=== PATIENT | male | born 1960 | race Caucasian/White ===

== ENCOUNTER 2018-08-01 14:44 | Inpatient (IN) | payer OTHER ==
[~2018-08-01] VITALS: Ht 172.7 cm; Wt 113.4 kg
--- NOTE | 2018-08-01 15:00 | NUR ---
BBPA FROM CLINIC: PALPITATIONS, NEW ONSET OF A-FIB. PT AAOX3, DENIES CP, SOB, DIZZINESS, N/V, ARM/JAW PAIN @ THIS TIME. PT SEEN & EVAL'D BY DR. HORNE & WILL CONT TO MONITOR.
[2018-08-01] MEDS ORDERED: FLUT16SP16 NS (15:07)
[2018-08-01] MEDS ORDERED: KETO10DR3 EACHEYE (15:07)
[2018-08-01] MEDS ORDERED: NAPR-1009 PO (15:07)
[2018-08-01 15:40] LABS: BASOPHILS # (AUTO) 0.2 /CMM (0.0-0.2); BASOPHILS % (AUTO) 2.3 % (0.0-2.0); EOSINOPHILS % (AUTO) 0.9 % (0.0-6.0); HEMATOCRIT 46 % (39-51); HEMOGLOBIN 15.1 g/dL (13.5-17.5); LYMPHOCYTES # (AUTO) 2.4 /CMM (0.8-4.8); LYMPHOCYTES % (AUTO) 28.2 % (20.0-44.0); MEAN CORPUSCULAR HEMOGLOBIN 28 PG (26.0-33.0); MEAN CORPUSCULAR HGB CONC 33 g/dl (31.0-36.0); MEAN CORPUSCULAR VOLUME 85 fL (80-96); MONOCYTES # (AUTO) 0.5 /CMM (0.1-1.30); MONOCYTES % (AUTO) 5.7 % (2.0-12.0); NEUTROPHILS # (AUTO) 5.3 /CMM (1.8-8.9); NEUTROPHILS % (AUTO) 62.9 % (43.0-81.0); PLATELET COUNT (AUTO) 222 /CMM (150-450); RDW COEFFICIENT OF VARIATION 13.2 (11.5-15.0); RED BLOOD CELL COUNT(AUTO) 5.42 MIL/uL (4.5-6.0); WHITE BLOOD COUNT (AUTO) 8.5 K/uL (4.3-11.0)
[2018-08-01 15:53] LABS: CALCIUM, SERUM 9.1 mg/dL (8.5-10.1); CARBON DIOXIDE 25 mmol/L (21-32); CHLORIDE 106 mmol/L (98-107); GLUCOSE 89 mg/dL (74-106); POTASSIUM 3.8 mmol/L (3.5-5.1); SODIUM SERUM 141 mmol/L (136-145); UREA NITROGEN, BLOOD 12 mg/dL (7-18)
[2018-08-01 15:55] LABS: INR 0.97 (0.85-1.15)
[2018-08-01 16:02] LABS: TROPONIN I < 0.017 ng/mL (0.00-0.056)
[2018-08-01 16:13] LABS: ALANINE AMINOTRANSFERASE 23 U/L (12-78); ALBUMIN 3.7 g/dL (3.4-5.0); ALKALINE PHOSPHATASE 67 U/L (46-116); ASPARTATE AMINOTRANSFERASE 19 U/L (15-37); B-TYPE NATRIURETIC PEPTIDE 189 PG/ML (0-125); BILIRUBIN,DIRECT 0.2 mg/dL (0.0-0.2); BILIRUBIN,TOTAL 0.6 mg/dL (0.2-1.0); TOTAL PROTEIN, SERUM 7.7 g/dL (6.4-8.2)
[2018-08-01] MEDS ORDERED: DILTIAZEM HCL 25 MG IV ONE (16:39)
--- NOTE | 2018-08-01 16:58 | NUR ---
MEDICATED WITH 15 MG OF CARDIZEM IVP PER DR. HORNE'S ORDER, PT NEHA WELL. DENIES CP, SOB, DIZZINESS, N/V, ARM/JAW PAIN @ THIS TIME. WILL CONT TO MONITOR.
[2018-08-01] MEDS ORDERED: DILTIAZEM HCL 25 MG IV IVP ONE (17:00)
--- NOTE | 2018-08-01 17:06 | NUR ---
PT SITTING UP, DENIES CP, SOB, DIZZINESS, N/V, ARM/JAW PAIN @ THIS TIME. WILL CONT TO MONITOR. FAMILY @ BS.
[2018-08-01] MEDS ORDERED: MAGNESIUM HYDROXIDE 30 ML UDC PO PRN (18:00)
[2018-08-01] MEDS ORDERED: HYDROCODONE/APAP 5/325MG 1 EACH TABLET PO PRN (18:00)
[2018-08-01] MEDS ORDERED: MAG HYDROX/AL HYDROX/SIMETH 30 ML UDC PO PRN (18:00)
[2018-08-01] MEDS ORDERED: ACETAMINOPHEN 325 MG TABLET PO PRN (18:00)
[2018-08-01] MEDS ORDERED: ONDANSETRON HCL/PF 4 MG/2 ML VIAL IVP PRN (18:00)
[2018-08-01] MEDS ORDERED: ZOLPIDEM TARTRATE 5 MG TABLET PO PRN (18:00)
--- NOTE | 2018-08-01 18:25 | NUR ---
RN NOTES RECEIVED PT FROM ER VIA CHRISTEL ACCOMPANIED BY RN. TOLERATING ROOM AIR WELL, PLACED ON TELEMONITOR, AFIB HR 80S. DENIES ANY PAIN/CHEST/JAW PAIN. WITH INTACT LHAND G20 SL. VS TAKEN. INITIAL ASSESSMENT DONE. ORIENTED TO ROOM. SAFETY MEASURES IN PLACED. CALL LIGHT WITHIN REACH. WILL CONT TO MONITOR
[2018-08-01] MEDS: ASPIRIN 325 MG TABLET PO SCH (18:41)
[2018-08-01] MEDS: ENOXAPARIN SODIUM 40 MG/0.4 ML DISP.SYRIN SQ SCH (18:42)
[2018-08-01 19:00] VITALS: BP 123/87
[2018-08-01 20:00] VITALS: BP 107/76
[2018-08-01] MEDS: CARVEDILOL 3.125 MG TABLET PO SCH (21:39)
[2018-08-02] VITALS: BP 108/79
--- NOTE | 2018-08-02 | NUR ---
PT UNABLE TO TOLERATE CPAP. RN JOHNATHAN TAKEN PT OFF CPAP. Addendum: 08/02/18 at 0539 by CRISS DE LA PAZ RT Amended: Links added.
--- NOTE | 2018-08-02 00:30 | NUR ---
RN NOTE PT REFUSED THE CPAP. PT SATURATION @ 96% WITHOUT CPAP ON. RT NOTIFIED. WILL CONTINUE TO MONITOR.
[2018-08-02 04:00] VITALS: BP 107/73
[2018-08-02 06:44] LABS: BASOPHILS % (AUTO) 0.7 % (0.0-2.0); EOSINOPHILS % (AUTO) 2.5 % (0.0-6.0); HEMATOCRIT 48 % (39-51); HEMOGLOBIN 15.3 g/dL (13.5-17.5); LYMPHOCYTES # (AUTO) 2.5 /CMM (0.8-4.8); LYMPHOCYTES % (AUTO) 40.5 % (20.0-44.0); MEAN CORPUSCULAR HEMOGLOBIN 28 PG (26.0-33.0); MEAN CORPUSCULAR HGB CONC 32 g/dl (31.0-36.0); MEAN CORPUSCULAR VOLUME 88 fL (80-96); MONOCYTES # (AUTO) 0.4 /CMM (0.1-1.30); MONOCYTES % (AUTO) 6.8 % (2.0-12.0); NEUTROPHILS # (AUTO) 3.1 /CMM (1.8-8.9); NEUTROPHILS % (AUTO) 49.5 % (43.0-81.0); PLATELET COUNT (AUTO) 226 /CMM (150-450); RED BLOOD CELL COUNT(AUTO) 5.46 MIL/uL (4.5-6.0); WHITE BLOOD COUNT (AUTO) 6.2 K/uL (4.3-11.0)
[2018-08-02 07:05] LABS: CALCIUM, SERUM 8.2 mg/dL (8.5-10.1); CREATININE 0.9 mg/dL (0.6-1.3); MAGNESIUM 2.1 mg/dL (1.8-2.4); PHOSPHORUS 3.5 mg/dL (2.5-4.9); POTASSIUM 4.1 mmol/L (3.5-5.1); THYROID STIMULATING HORMONE 1.092 uIU/mL (0.358-3.74)
--- NOTE | 2018-08-02 07:40 | NUR ---
TD RN NOTES: RECEIVED PT ON BED ASLEEP, AROUSES EASILY. NO APPARENT DISTRESS NOTED. DENIES PAIN AND DISCOMFORT AT THIS TIME. ON ROOM AIR, SATURATING WELL. NO SOB NOTED. ON TELE MONITOR, A. FIB HR 98BPM. IV ON LEFT HAND #20 INTACT AND PATENT, FLUSHING WELL. CALL LIGHT PLACED WITHIN REACH. KEPT CLEAN, DRY AND COMFORTABLE. SIDE RAILS UP X2. BED ALARM ON. BED LOCKED AND IN LOWEST POSITION. WILL CONTINUE TO MONITOR PT.
[2018-08-02 08:00] VITALS: BP 110/72
[2018-08-02] MEDS: PANTOPRAZOLE 40 MG TABLET.DR PO SCH (08:00)
[2018-08-02] MEDS: HYDROCHLOROTHIAZIDE 25 MG TABLET PO SCH (08:10)
[2018-08-02] MEDS: ASPIRIN 325 MG TABLET PO SCH (08:10)
[2018-08-02] MEDS: CARVEDILOL 3.125 MG TABLET PO SCH (08:11)
[2018-08-02 12:00] VITALS: BP 139/89
[2018-08-02 16:00] VITALS: BP 108/73
[2018-08-02] MEDS ORDERED: DILTIAZEM HCL 30 MG TABLET PO ONE ×2 (18:30→19:00)
--- NOTE | 2018-08-02 18:30 | NUR ---
TD RN NOTES: NO CHANGES NOTED THROUGHOUT THE SHIFT. NO COMPLAINTS OF PAIN OR DISCOMFORT AT THIS TIME. ON ROOM AIR, SATURATING WELL. NO SOB NOTED. PT WAS SEEN BY DR. POWERS WITH ORDER TO GIVE FIRST DOSE OF DILTIAZEM 60MG PO X1, THEN GIVE SECOND DOSE OF 60MG AFTER 30MINS WITH PARAMETER TO HOLD IF HR IS LESS THAN 80 AND SBP IS LESS THAN 100, ORDER CARRIED OUT AND DONE. BP AND HR CHECKED BEFORE GIVING MEDICATION. KEPT CLEAN, DRY AND COMFORTABLE. SAFETY AND FALL PRECAUTIONS OBSERVED AND MAINTAINED. WILL ENDORSE TO [employer]ER [employer] FOR CONTINUITY OF CARE.
--- NOTE | 2018-08-02 19:15 | NUR ---
RN CHONG NOTE PATIENT IS AOX3, SPEECH CLEAR, ABLE TO MAKE NEEDS KNOWN, DENIES PAIN, ON ROOM AIR, DENIES CARDIAC OR RESPIRATORY DISTRESS, ON TELE AFIB, LEFT HAND #20G, PATENT FLUSHING WELL, SITE CDI, SAFETY MAINTAINED AT ALL TIMES, CALL LIGHT WITHIN REACH, BED IN LOW LOCKED POSITION, WILL CONTINUE TO MONITOR FOR ANY CHANGES IN CONDITION.
[2018-08-02 20:00] VITALS: BP 120/77
[2018-08-02] MEDS: ENOXAPARIN SODIUM 40 MG/0.4 ML DISP.SYRIN SQ SCH (20:16)
[2018-08-02] MEDS ORDERED: CARVEDILOL 3.125 MG TABLET PO SCH (21:00)
[2018-08-03] VITALS: BP 111/67
[2018-08-03] MEDS: DILTIAZEM HCL 30 MG TABLET PO SCH ×3 (00:06→11:57)
[2018-08-03 04:00] VITALS: BP 100/66
--- NOTE | 2018-08-03 07:15 | NUR ---
RN CHONG INITIAL NOTES RECEIVED REPORT AND PATIENT FROM PM NURSE, PATIENT RESTING IN BED, A&O X4 ARMENIAN AND DUTCH SPEAKING, ON TELE MONITOR A-FIB CONTROLLED WITH HEART RATE 89, ON ROOM AIR SATURATING ABOVE 95%, NO SHORTNESS OF BREATHE OR ACUTE DISTRESS NOTED, LEFT HAND 20G IV SITE INTACT AND PATENT NO S/S OF INFILTRATION NOTED, ALL SAFETY MEASURES INITIATED, SIDE RAILS X2, BED LOW AND LOCKED, CALL LIGHT WITHIN REACH, WILL CONTINUE TO MONITOR.
[2018-08-03 08:00] VITALS: BP 105/71
[2018-08-03] MEDS: PANTOPRAZOLE 40 MG TABLET.DR PO SCH (09:01)
[2018-08-03] MEDS: HYDROCHLOROTHIAZIDE 25 MG TABLET PO SCH (09:02)
[2018-08-03] MEDS: ASPIRIN 325 MG TABLET PO SCH (09:02)
[2018-08-03 12:00] VITALS: BP 132/80
--- NOTE | 2018-08-03 13:13 | NUR ---
VASILE CHONG ENDING NOTES PATIENT PROVIDED WITH EXIT CARE, EDUCATION PROVIDED. FAMILY AT BEDSIDE. VALUABLES SIGNED FOR. REMOVED IV. NO S/SX OF INFECTION NOTED. TELE BOX REMOVED. FOLLOW UP CARE PROVIDED. PATIENT STATED I HAVE NO MORE QUESTIONS. PATIENT DECLINED W/CHAIR ;PATIENT DISCHARGED TO HOME ACCOMPANIED BY IN PRIVATE VEHICLE. Addendum: 08/03/18 at 1325 by RALPH RIVERA RN DISCHARGE PAPERWORK SIGNED, PRESCRIPTION GIVEN TO PATIENT AND EDUCATED PATIENT TO GO TO OWN PHARMACY TO OBTAIN MEDICATIONS.
== END 2018-08-03 13:10 | disposition home or self-care (01) | DRG 201 ==
LOC: ER 14:45 → TELE-TD 17:36
PROVIDERS: ADMIT Nurse Practitioner Acute Care; ATTEND Nurse Practitioner Acute Care
PROC: 5A09357 Assistance with Respiratory Ventilation, Less than 24 Consecutive Hours, Continuous Positive Airway Pressure (ICD-10-PCS; principal; 2018-08-02)
DX: I48.91 Unspecified atrial fibrillation (principal); E88.81 Metabolic syndrome and other insulin resistance; E44.1 Mild protein-calorie malnutrition; E66.01 Morbid (severe) obesity due to excess calories; Z68.38 Body mass index [BMI] 38.0-38.9, adult; G47.33 Obstructive sleep apnea (adult) (pediatric); I10 Essential (primary) hypertension; I51.7 Cardiomegaly
CPT/HCPCS: 36415; 71045-TC; 80048-TC; 80061-TC; 80076-TC; 83735-TC; 83880; 84100-TC; 84443-TC; 84484-TC; 85025-TC; 85730-TC; 87081-TC; 93307-TC; A4606; J1650; J3490; Z7610